=== PATIENT | female | born 1995 | race Caucasian/White ===

== ENCOUNTER 2024-06-03 08:19 | Inpatient (IN) | payer MEDICAID, SELFPAY ==
[2024-06-03] VITALS (50 sets, daily range): BP systolic 109–134; BP diastolic 45–79; PULSE 56–98; RESP 16–98; TEMP 36.3–36.8; O2SAT 97–100; BMI 40.1
--- NOTE | 2024-06-03 10:17 | ESHP_ITS ---
RE: YORDAN MARAVILLA : 1995 DATE OF ADMISSION: 06/03/2024 HISTORY OF PRESENT ILLNESS: This is a 28-year-old, 4, para 2-0-1-2 with a due date of 06/22/2024 with an intrauterine at 37 weeks and 2 days. He presents to labor and delivery complaining of contractions and is noted to have persistent contractions every 5 minutes. The patient denies any leaking or bleeding. She reports normal movement. She has a history of two previous deliveries and she elects to repeat delivery. She is also multiparous and desires voluntary sterilization. Her care has been unremarkable. ALLERGIES: NO KNOWN DRUG ALLERGIES. MEDICATIONS: 1. multivitamin 1 p.o. daily. 2. Sertraline 50 mg 1 p.o. daily. PAST MEDICAL HISTORY: Depression, gluten intolerance, history of cholestasis of in a prior , endometriosis, and adenomyosis. SOCIAL HISTORY: She denies any alcohol, drug use, or smoking. FAMILY HISTORY: Breast cancer and diabetes. OBSTETRIC HISTORY: In 2019, 38 weeks delivery, 8 pounds 12-ounce male. No complications. In 2020, spontaneous AB at 6 weeks gestation. In 08/2022, 39 weeks delivery, 7 pound, 8 ounce female. No complications. PAST SURGICAL HISTORY: delivery in 2019 and 2022. REVIEW OF SYSTEMS: She denies any headache, change in vision, or right upper quadrant pain. She denies any chest pain, palpitations, shortness of breath, or lower extremity pain. PHYSICAL EXAMINATION: VITAL SIGNS: Blood pressure is 133/72, heart rate 88, respirations 18, temperature 98.2, and weight 253 pounds. HEENT: Oropharynx and sclerae are clear. LUNGS: Clear to auscultation bilaterally. HEART: Regular rate and rhythm. ABDOMEN: Gravid term size consistent with 8.25 pounds. PELVIC: See RN notes. EXTREMITIES: Nontender. SKIN: No gross rashes or lesions. NEUROLOGIC: No focal deficits. ASSESSMENT: 1. Intrauterine at 37 weeks and 2 days, previous delivery x2. 2. False labor versus early labor. 3. Multiparity, desires voluntary sterilization. PLAN: Observation and if continues to contract or demonstrate cervical change, we will proceed with delivery and bilateral tubal ligation. Informed consent was obtained. The patient has been made aware of the risks, complications, alternatives, and benefits of the proposed procedure, and she agrees. She is aware of the failure rate and increased risk of tubal ectopic gestation if occurs. DT: 09:16:51 TT: 10:15:00 Ref: [id number] - TID: [id number] MTDD
[2024-06-03 10:20] LABS: Basophils % (Auto) 0 % (0-2.5); Eosinophils % (Auto) 0 % (0-10); Hematocrit 35.9 % (36.0-46.0); Hemoglobin 12.1 g/dL (12.0-16.0); Immature Granulocytes % (Auto) 1 % (0-0); Immature Granulocytes Auto 0.08 Thou/mm3 (0.00-0.00); Lymphocytes # (Auto) 1.8 Thou/mm3 (1.0-4.8); Lymphocytes % (Auto) 15 % (10-50); Mean Corpuscular HGB Conc 33.7 g/dl (31.0-37.0); Mean Corpuscular Hemoglobin 28.8 pg (25.0-35.0); Mean Corpuscular Volume 86 fL (80-100); Monocytes # (Auto) 0.7 Thou/mm3 (0.0-0.8); Monocytes % (Auto) 6 % (0-12); Neutrophils # (Auto) 9.6 Thou/mm3 (1.8-7.7); Neutrophils % (Auto) 78 % (37-80); Nucleated Red Blood Cell % 0 /100 WBC (0); Platelet Count 186 Thou/mm3 (140-440); RDW Standard Deviation 43.3 fL (36.4-46.3); White Blood Count 12.3 Thou/mm3 (3.6-11.0)
[2024-06-03 11:13] LABS: Syphilis Nonreactive (Nonreactive)
[2024-06-03] MEDS: CITRIC ACID/SODIUM CITR 15 ML UDC (BICITRA) 30 ML PO (11:33)
[2024-06-03] MEDS: FAMOTIDINE INJ 10 MG/ML VIAL 2 ML 20 MG IV (11:33)
[2024-06-03] MEDS: ceFAZolin/D5W 2 GM IV 2 GM/100 ML BAG IV (11:34)
--- NOTE | 2024-06-03 12:43 | ESDS_ITS ---
DS: Providers Provider Date of admission: 06/03/24 08:19 Primary care physician: Physician No Primary/Family Admitting Provider: Yonny Whalen MD Attending Provider on Admission: Yonny Whalen MD Attending Provider on DC: Yonny Whalen MD Discharging Provider: Yonny Whalen MD DS: Diagnosis Problem List Completed Was Problem List Reviewed/Reconciled?: Yes Summary/Hosp Course Peripartum Data Procedures: Procedures Operation Date: 06/03/24 12:02 <No data on this case meets the specified criteria> Time Spent with Patient Time attestation: Total time spent providing and/or coordinating discharge services: Exam Vital Signs Temp Pulse Resp BP Pulse Ox 97.6 F 78 18 133/77 H 98 06/03/24 08:30 06/03/24 11:00 06/03/24 08:30 06/03/24 11:00 06/03/24 11:13 Discharge Plan Plan Patient Disposition: HOME (Self Care) Patient condition on transfer: Stable Prescriptions/Referrals Prescriptions/Med Rec: New hydrocodone-acetaminophen 5-325 mg tablet 1 tab PO Q6H MDD 4 PRN (Reason: pain) Qty: 20 0RF Rx Instructions: Pt had a c section ibuprofen 600 mg tablet 600 mg PO Q6H PRN (Reason: pain) Qty: 30 0RF hydrocodone-acetaminophen 5-325 mg tablet 1 tab PO Q6H MDD 4 PRN (Reason: pain) Qty: 20 0RF Rx Instructions: Second request to fill the prescription. Continued prenat.vits,yariel,[id number]-[id number] Tablet 1 tab PO QDAY sertraline 50 mg tablet 50 mg PO Q24H Patient Comments: TAKE 1 TABLET BY MOUTH EVERY DAY Discontinued ibuprofen 800 mg tablet 800 mg PO Q6H PRN (Reason: pain) Qty: 30 0RF doxylamine-pyridoxine (vit B6) [Diclegis] 10-10 mg tablet,delayed release (DR/EC) 1 tab PO .q night Patient Comments: PLEASE SEE ATTACHED FOR DETAILED DIRECTIONS Referrals: No Primary/Family,Physician [Primary Care Provider] - Patient/Caregiver Discharge Instructions Discharge Activity: activity as tolerated Other Discharge Activity Instructions:: Follow up office 1 week. Education Materials: Understanding Blues, Breast Care After , C Section Dc Print Language: Nauruan Stand Alone Forms: Pastora Award Info., Patient Portal Info Letter, Work/Release Restrictions Discharge Order Discharge Orders: Discharge (Routine); Ordered 06/05/24 Ordered By: Yonny Whalen Planned Discharge Date 06/05/24
--- NOTE | 2024-06-03 13:56 | ESOP_ITS ---
RE: YORDAN MARAVILLA : 1995 DATE OF OPERATION: 06/03/2024 PREOPERATIVE DIAGNOSES: 1. Intrauterine at 37 weeks and 2 days. 2. Early labor. 3. Previous delivery x2, desires repeat delivery. 4. Multiparity, desires voluntary sterilization. POSTOPERATIVE DIAGNOSES: 1. Intrauterine at 37 weeks and 2 days. 2. Early labor. 3. Previous delivery x2, desires repeat delivery. 4. Multiparity, desires voluntary sterilization. 5. Endometriosis. 6. Adenomyosis. 7. Pelvic adhesions. PROCEDURE PERFORMED: 1. Repeat delivery via midline vertical incision. 2. Bilateral salpingectomy. SURGEON: Yonny Whalen DO RAIL TRACTOR OPERATOR: DOMINIK Romero ANESTHESIA: Spinal. ANESTHESIOLOGIST: Krzysztof Castanon CRNA ESTIMATED BLOOD LOSS: 500 mL COMPLICATIONS: None. COUNTS: Correct. PATHOLOGY: 1. Bilateral fallopian tubes. 2. Left and right fallopian tubes. FINDINGS: A live female infant, cephalic presentation, clear amniotic fluid. , see RN notes. Cord pH, see labs. Endometriotic implants on both ovaries and superficial endometrial uterosacral ligaments, adenomyosis, severe adhesions of the bladder to the lower uterine segment requiring a low vertical incision in the midline on the uterus. DESCRIPTION OF PROCEDURE: After appropriate informed consent was obtained and the patient was made aware of the risks, complications, alternatives, and benefits of the proposed procedure, she was taken to the operating room where she underwent induction of spinal anesthesia. She was placed in the dorsal supine position with leftward tilt. She was prepped and draped in the usual sterile fashion. A timeout was performed. Pfannenstiel skin incision was made with the scalpel, carried through to the underlying layer of fascia with the Bovie. The fascia was nicked in the midline, incision extending bilaterally with the Bovie. The inferior aspect of the fascia incision was grasped with Georgina clamps and elevated. The underlying rectus muscles dissected off with the Bovie. The rectus muscles were at the midline. The perineum identified between 2 Herron clamps and entered sharply with Metzenbaum scissors. The incision was extended superiorly and inferiorly with good visualization of the bladder. Bladder blade was then inserted. The vesicouterine peritoneum was incised transversely and the bladder flap was created digitally. The bladder blade was reinserted. The lower uterine segment was incised in a transverse fashion with the scalpel. The incision on the uterus was made in the midline in a low vertical incision due to severe pelvic adhesions of the bladder to the lower uterine segment and the head was delivered atraumatically. The mouth and nose were suctioned with the bulb suction. Shoulder and body delivered atraumatically. The cord was clamped and cut. The infant was sent off to the waiting pediatric staff. Cord blood and gases were sent. Placenta was then removed manually. The uterus was exteriorized and cleared of all clots and debris and the uterus incision was repaired with #1-0 chromic catgut suture in a running locking fashion. A second layer of the same suture was used to imbricate the first layer and obtained excellent hemostasis. Attention was then turned to the right fallopian tube, which was grasped with a Subha clamp and using the EnSeal X1 Large Jaw, the right salpingectomy was performed and specimen sent to pathology. Attention was then turned to the left fallopian tube, which was grasped with the fimbriated end using the Margaret clamp and using the EnSeal X1 Large Jaw, the left salpingectomy was performed. Hemostasis was achieved. The uterus was returned to the abdomen. The fundus was firm. The gutters were cleared of all clots and debris. The peritoneum was closed with 0 chromic catgut suture in running fashion. The muscle was closed with a 0 chromic catgut suture in running fashion. The fascia was closed with #0 Vicryl beginning at each angle and ending in a center in running fashion. Subcutaneous tissue was irrigated with normal saline solution and closed with 2-0 chromic catgut suture in running fashion. Skin was closed with 4-0 Monocryl. Dermabond Prineo dressing was applied. Sterile pressure dressing was applied. She tolerated the procedure well. Counts were correct. I discussed with the patient, the nature of her condition, the intraoperative findings, and expectations for recovery. All questions answered. DT: 12:40:11 TT: 13:54:00 Ref: [id number] - TID: [id number]
[2024-06-03] MEDS: KETOROLAC INJ 30 MG/ML VIAL IVP (14:20)
[2024-06-03] MEDS: OXYTOCIN in NS 20 units 20 UNIT/1,000 ML BAG 125 UNIT IV (15:39)
--- NOTE | 2024-06-03 17:45 | PC.NURSE ---
MD made aware of patient requesting to get up prior to the standard 12 hour post csection, Per MD patient can get up whenever she wants and gudino can be removed.
[2024-06-03 18:20] LABS: Basophils % (Auto) 0 % (0-2.5); Eosinophils % (Auto) 0 % (0-10); Hematocrit 37.4 % (36.0-46.0); Hemoglobin 12.6 g/dL (12.0-16.0); Immature Granulocytes % (Auto) 1 % (0-0); Immature Granulocytes Auto 0.14 Thou/mm3 (0.00-0.00); Lymphocytes # (Auto) 0.9 Thou/mm3 (1.0-4.8); Lymphocytes % (Auto) 5 % (10-50); Mean Corpuscular HGB Conc 33.7 g/dl (31.0-37.0); Mean Corpuscular Hemoglobin 29.1 pg (25.0-35.0); Mean Corpuscular Volume 86 fL (80-100); Monocytes # (Auto) 0.4 Thou/mm3 (0.0-0.8); Monocytes % (Auto) 2 % (0-12); Neutrophils # (Auto) 16.8 Thou/mm3 (1.8-7.7); Neutrophils % (Auto) 92 % (37-80); Nucleated Red Blood Cell % 0 /100 WBC (0); Platelet Count 197 Thou/mm3 (140-440); RDW Standard Deviation 43.9 fL (36.4-46.3); Red Blood Count 4.33 Miln/mm3 (4.00-5.20); White Blood Count 18.2 Thou/mm3 (3.6-11.0)
[2024-06-04] VITALS: BP 118/62; PULSE 76; RESP 16; TEMP 36.4; O2SAT 98
[2024-06-04] MEDS: IBUPROFEN TAB 400 MG TABLET 800 MG PO ×2 (00:46→16:06)
[2024-06-04 04:32] VITALS: BP 102/67; PULSE 65; RESP 18; TEMP 36.6; O2SAT 96
[2024-06-04 07:50] VITALS: BP 112/72; PULSE 60; RESP 20; TEMP 36.4; O2SAT 100
[2024-06-04 09:29] VITALS: TEMP 36.8
[2024-06-04] MEDS: KETOROLAC INJ 30 MG/ML VIAL IVP (09:29)
[2024-06-04] MEDS: ENOXAPARIN SOD INJ 40 MG/0.4 ML SYRINGE SC (09:30)
[2024-06-04] MEDS: DOCUSATE SOD 100 MG CAPSULE PO (09:30)
--- NOTE | 2024-06-04 11:08 | PD.LDDELS ---
Data ([facility]) Data Hx Section: Yes : 4 Para: 2 Term: 2 : 0 : 1 Delivery Data ([facility]) Labor Data ROM Date: 06/03/24 ROM Time: 12:06 Rupture Type: AROM Amniotic Fluid: Clear Delivery Data EDC: 06/22/24 EDC calculated by:: LMP/early US confirmation Labor Onset Stage 1 Date: 06/03/24 Labor Onset Stage 1 Time: 12:06 Labor Onset Stage 2 Date: 06/03/24 Labor Onset Stage 2 Time: 12:06 Delivery Date: 06/03/24 Delivery Time: 12:07 Gestational age (weeks): 37 Gestational age (days): 3 Placenta Delivery Date: 06/03/24 Placenta Delivery Time: 12:08 Delivered by: Yonny Whalen Delivery nurse: Carline Salinas Other staff at delivery: Nursery Nurse Other staff at delivery: [email or web address] Delivery Method Delivery: Delivery Type: Repeat Presentation: Vertex Position: OA Anesthesia Type Primary Anesthesia: Spinal Placenta Placenta Delivery: Manual Placenta Cultures Obtained: No Placenta Sent for Examination: No Cord Sample: Cord Blood Obtained EBL Estimated blood loss (ml): 500 Umbilical Cord Nuchal Cord: None Additional Procedures Bilateral salpingectomy Complications Complications: None Data ([facility]) Data Infant Gender: Female Infant Weight Grams: 3270 1 Minute Total: 8 5 Minute Total: 7 10 Minute Total: 9
--- NOTE | 2024-06-04 11:35 | ESPR_ITS ---
RE: YORDAN MARAVILLA : 1995 DATE OF SERVICE: 06/04/2024 S: Postop day #1, the patient denies any problem or complaints. She is voiding. She is ambulating. She is tolerating regular diet. She is passing flatus. She denies any excessive vaginal bleeding. She denies any dizziness or lightheadedness. She denies any chest pain, palpitations, shortness of breath or lower extremity pain. O: Vital Signs: Blood pressure is 112/72, heart rate 60, respirations 20, temperature 98.2, and pulse ox is 100% on room air. Lungs: Clear to auscultation bilaterally. Heart: Regular rate and rhythm. Abdomen: Dressing is dry and intact. Fundus is firm. Extremities: Nontender. Laboratory Data: Hemoglobin pre-delivery is 12.1 and post delivery is 12.6. A: Postoperative day #1, status post delivery and bilateral salpingectomy. P: Remove dressing, discontinue IV, encourage ambulation, support, possible discharge home tomorrow. DT: 11:04:59 TT: 11:33:00 Ref: [id number] - TID: [id number]
[2024-06-04 12:00] VITALS: BP 112/70; PULSE 72; RESP 18; TEMP 36.7; O2SAT 99
[2024-06-04 19:50] VITALS: BP 112/73; PULSE 67; RESP 16; TEMP 36.4; O2SAT 98
[2024-06-04] MEDS: HYDROcodone/APAP 5/325 TABLET 2 TAB PO (20:02)
[2024-06-05 03:20] VITALS: BP 116/69; PULSE 64; RESP 18; TEMP 36.6; O2SAT 96
[2024-06-05] MEDS: HYDROcodone/APAP 5/325 TABLET 2 TAB PO (03:33)
--- NOTE | 2024-06-05 07:19 | ESPR_ITS ---
RE: YORDAN MARAVILLA : 1995 DATE OF SERVICE: 06/05/2024 S: Postop day #2, the patient denies any problem or complaints. She is voiding. She is ambulating. She is tolerating regular diet. She is passing flatus. She denies any excessive vaginal bleeding. She denies any dizziness or lightheadedness. She denies any chest pain, palpitations, shortness of breath, or lower extremity pain. O: Vital Signs: Blood pressure 116/69, heart rate 64, respirations 18, temperature 97.9, pulse ox is 96 on room air. Lungs: Clear to auscultation bilaterally. Heart: Regular rate and rhythm. Abdomen: Gravid abdomen. Incision clear and intact. Extremities: Nontender. ASSESSMENT: Postop day #2, status post delivery and bilateral salpingectomy. PLAN: Discharge home. Discharge instructions given. Follow up in the office in one week. DT: 06:44:06 TT: 07:18:00 Ref: [id number] - TID: [id number]
[2024-06-05] MEDS: IBUPROFEN TAB 400 MG TABLET 800 MG PO (07:22)
[2024-06-05 07:26] VITALS: BP 128/81; PULSE 73; RESP 18; TEMP 36.5; O2SAT 99
[2024-06-05] MEDS: ENOXAPARIN SOD INJ 40 MG/0.4 ML SYRINGE SC (07:53)
[2024-06-05] MEDS: DOCUSATE SOD 100 MG CAPSULE PO (07:53)
[2024-06-05] MEDS: SERTRALINE HCL 25 MG TABLET 50 MG PO (07:53)
== END 2024-06-05 10:45 | disposition home or self-care (01) | DRG 539 ==
LOC: S4SX 11:23 → S4NX 11:52
PROVIDERS: Admitting Provider Specialist; Visit Provider Specialist
PROC: 0UL70ZZ Occlusion of Bilateral Fallopian Tubes, Open Approach (ICD-10-PCS; CPT 59514; principal; 2024-06-03 11:30)
DX: O34.211 Maternal care for low transverse scar from previous cesarean delivery (principal); Z30.2 Encounter for sterilization; Z37.0 Single live birth; Z3A.37 37 weeks gestation of pregnancy; O99.892 Other specified diseases and conditions complicating childbirth; N80.03 Adenomyosis of the uterus; N73.6 Female pelvic peritoneal adhesions (postinfective)
CPT/HCPCS: 36415; 59025; 85025; 86780; 86850; 86900; 86901; A4649; J0689; J1100; J1650; J1885; J2250; J2274; J2371; J2405; J2590; J3490; A9270; J2270